=== PATIENT | male | born 1995 | race Caucasian/White ===

== ENCOUNTER 2016-07-08 13:10 | Emergency (ER) | payer SELFPAY ==
[~2016-07-08] VITALS: Ht 167.6 cm; Wt 72.6 kg
[2016-07-08] MEDS ORDERED: ACETAMINOPHEN 500 MG TABLET PO ONE (13:45)
[2016-07-08 14:04] LABS: BASE EXCESS COOX 1 mmol/L (-3-3); HCO3 COOX 25 mmol/L (21-28); METHEMOGLOBIN 0.5 % (0.0-1.9); OXYHEMOGLOBIN 96.6 %; PCO2 COOX 39 mmHg (35-46); PH COOX 7.43 (7.35-7.45); PO2 COOX 89 mmHg (85-108); SAT O2 COOX 97 % (92-99); TOTAL HEMOGLOBIN 15.7 g/dL
[2016-07-08 14:10] VITALS: BP 122/78
[2016-07-08 14:13] LABS: FIO2 COOX 21
--- NOTE | 2016-07-08 14:18 | PHYS DOC ---
Past Medical History Past Medical History: No Pertinent History Past Surgical History: No Surgical History Alcohol Use: Occasionally Drug Use: None Adult General Chief Complaint Chief Complaint: HEADACHE HPI HPI This is a 20-year-old male who has known exposure to a gas leak that awoke with a headache today while resting at home. He states he had mild nausea with no vomiting. He denies any significant shortness of breath.. Currently on my exam, the patient is fully alert and oriented and in no acute distress. He denies any specific complaints at this time and states he feels much improved from previous presentation to EMS. He denies any significant health problems. He denies any nausea currently but does state he has a mild headache. He has not yet taken anything for his headache. Review of Systems Review of Systems Constitutional: Denies fever or chills [] Eyes: Denies change in visual acuity, redness, or eye pain [] HENT: Denies nasal congestion or sore throat [] Respiratory: Denies cough or shortness of breath [] Cardiovascular: No additional information not addressed in HPI [] GI: Denies abdominal pain, nausea, vomiting, bloody stools or diarrhea [] : Denies dysuria or hematuria [] Musculoskeletal: Denies back pain or joint pain [] Integument: Denies rash or skin lesions [] Neurologic: Has headache, denies focal weakness, denies sensory changes [] Endocrine: Denies polyuria or polydipsia [] Current Medications Current Medications Current Medications Medications (Trade) Dose Ordered Sig/Dulce Start Time Stop Time Status Last Admin Dose Admin Acetaminophen (Tylenol) 1,000 mg 1X ONCE 07/08/16 13:45 07/08/16 13:46 DC 07/08/16 13:48 1,000 MG Allergies Allergies Allergies Coded Allergies Type Severity Reaction Last Updated Verified No Known Drug Allergies 07/08/16 No Physical Exam Physical Exam Constitutional: Well developed, well nourished, no acute distress, non-toxic appearance. [] HENT: Normocephalic, atraumatic, bilateral external ears normal, oropharynx moist, no oral exudates, nose normal. [] Eyes: PERRLA, EOMI, conjunctiva normal, no discharge. [] Neck: Normal range of motion, no tenderness, supple, no stridor. [] Cardiovascular:Heart rate regular rhythm, no murmur [] Lungs & Thorax: Bilateral breath sounds clear to auscultation [] Abdomen: Bowel sounds normal, soft, no tenderness, no masses, no pulsatile masses. [] Skin: Warm, dry, no erythema, no rash. [] Back: No tenderness, no CVA tenderness. [] Extremities: No tenderness, no cyanosis, no clubbing, ROM intact, no edema. [] Neurologic: Alert and oriented X 3, normal motor function, normal sensory function, no focal deficits noted. [] Psychologic: Affect normal, judgement normal, mood normal. [] Current Patient Data Vital Signs Vital Signs Date Time Temp Pulse Resp B/P Pulse Ox O2 Delivery O2 Flow Rate FiO2 07/08/16 13:15 98.6 88 18 141/63 97 Room Air 98.6 EKG EKG [] Radiology/Procedures Radiology/Procedures [] Course & Med Decision Making Course & Med Decision Making Pertinent Labs and Imaging studies reviewed. (See chart for details) This 20-year-old male with mild headache after exposure to a gas leak has an ABG here that is negative for any acute abnormality. His carboxyhemoglobin level is 0. Patient was given a dose of Tylenol and observed in the department for approximately an hour and had normal vital signs and was saturating in the upper 90s on room air. He will be safe to be discharged at this time. The gas leak has been addressed by the authorities. I will career technical counselor him to return to the department if he develops any worsening headache or nausea or vomiting or develops any trouble breathing. Dragon Disclaimer Dragon Disclaimer This electronic medical record was generated, in whole or in part, using a voice recognition dictation system. Departure Departure Impression: Primary Impression: Headache Additional Impression: Nausea Disposition: 01 HOME, SELF-CARE Condition: STABLE Referrals: NO PCP (PCP) Patient Instructions: General Headache Without Cause, [id number] Additional Instructions: Please follow up with your primary doctor in the next several days if you develop any persisting symptoms. Return to the ER if you develop any worsening of your breathing or have any worsening of your headache. Take tylenol or motrin as needed for your symptoms. Problem Qualifiers SUZETTE ORO DO Jul 08, 2016 14:18
== END 2016-07-08 14:30 | disposition home or self-care (01) ==
LOC: ER 13:10
DX: R51 Headache (principal); R11.0 Nausea
CPT/HCPCS: 36600; 82805; 99283